=== PATIENT | male | born 1990 | race African-American/Black ===

== ENCOUNTER 2016-07-11 16:00 | Emergency (ER) | payer OTHER, MEDICAID ==
[2016-07-11] MEDS ORDERED: NORMAL SALINE 1000 ML 1,000 ML IV ONE ×2 (16:13→17:44)
--- NOTE | 2016-07-11 16:13 | ER Document Report ---
ED General - General Time seen by provider: 16:10 Mode of Arrival: Medic Information source: Patient, Law Enforcement TRAVEL OUTSIDE OF THE [place] IN LAST 30 DAYS: No - HPI Onset: Other - see HPI note <NADEEM PADRON - Last Filed: 07/11/16 20:28> <WILBURROMELIA CLEVE - Last Filed: 07/11/16 23:12> - General Stated Complaint: POSSIBLE OVERDOSE Notes: Patient is a 25-year-old male presenting to the emergency department for bizarre behavior and high blood glucose levels. Patient was brought in with [facility]. Patient was released from snf yesterday. Patient was walking around the mall and a protein people. Per [place] patient had pinpoint pupils and was not acting right. Patient has a blood glucose level of 456 and is acting confused. Patient reports that he was taking insulin while in snf. Patient is combative with hospital security. Patient reports that he has diabetes mellitus and hypertension. Patient reports that he is having hallucinations. Patient has no known allergies. (NADEEM PADRON) - Related Data Allergies/Adverse Reactions: No Known Allergies Allergy (Unverified 02/28/16 23:09) Past Medical History - General Information source: Patient, COUNTS INCLUDE [facility] BEDS AT THE [facility] Records - Social History Smoking Status: Unknown if Ever Smoked Family History: None - Past Medical History Cardiac Medical History: Reports: Hx Hypertension Endocrine Medical History: Reports: Hx Diabetes Mellitus Type 1 <NADEEM PADRON - Last Filed: 07/11/16 20:28> Review of Systems - Review of Systems Constitutional: No symptoms reported EENT: No symptoms reported Cardiovascular: No symptoms reported Respiratory: No symptoms reported Gastrointestinal: No symptoms reported Genitourinary: No symptoms reported Male Genitourinary: No symptoms reported Musculoskeletal: No symptoms reported Skin: No symptoms reported Hematologic/Lymphatic: No symptoms reported Neurological/Psychological: See HPI, Hallucinations -: Yes All other systems reviewed and negative <NADEEM PADRON - Last Filed: 07/11/16 20:28> Physical Exam - Vital signs Interpretation: Tachycardic - General General appearance: Appears well, Alert In distress: Mild - HEENT Head: Normocephalic, Atraumatic Eyes: Normal Pupils: PERRL Mucous membranes: Dry - Respiratory Respiratory status: No respiratory distress Chest status: Nontender Breath sounds: Normal Chest palpation: Normal - Cardiovascular Rhythm: Regular Heart sounds: Normal auscultation Murmur: No - Abdominal Inspection: Normal Distension: No distension Bowel sounds: Normal Tenderness: Nontender Organomegaly: No organomegaly - Back Back: Normal, Nontender - Extremities General upper extremity: Normal inspection, Normal ROM, Normal strength General lower extremity: Normal inspection, Normal ROM, Normal strength - Neurological Neuro grossly intact: Yes Cognition: Confused [place] Coma Scale Eye Opening: Spontaneous [place] Coma Scale Verbal: Oriented [place] Coma Scale Motor: Obeys Commands Dmitri Coma Scale Total: 15 Speech: Normal - Psychological Associated symptoms: Agitated, Confused, Uncooperative, Other - patient is responding to stimuli that others can not see - Skin Skin Temperature: Warm Skin Moisture: Dry <NADEEM PADRON - Last Filed: 07/11/16 20:28> Course - Laboratory Result Diagrams: 07/11/16 16:19 07/11/16 16:19 <NADEEM PADRON - Last Filed: 07/11/16 20:28> - Laboratory Result Diagrams: 07/11/16 16:19 07/11/16 16:19 - Diagnostic Test Radiology reviewed: Reports reviewed <ROMELIA BOWLES - Last Filed: 07/11/16 23:12> - Re-evaluation Re-evalutation: 07/11/16 Patient is a 25-year-old male the history of diabetes who comes in with active hallucinations. Patient was apparently combative at the mall and walking up to people. Patient responds to external and internal stimuli. Medically stable. Blood sugars been treated with fluids and also a small dose of insulin. Patient has been, cooperative in the emergency department. Patient will be held for psychiatric evaluation the morning. He has been placed on involuntary commitment paperwork. (ROMELIA BOWLES) - Vital Signs Vital signs: Temp Pulse Resp BP Pulse Ox 97.8 F 88 14 127/68 H 98 07/11/16 16:57 07/11/16 19:11 07/11/16 19:11 07/11/16 19:11 07/11/16 19:11 (ROMELIA BOWLES) - Laboratory Laboratory results interpreted by me: 07/11/16 07/11/16 07/11/16 16:19 16:19 16:19 Hgb 12.9 L Glucose 434 H* POC Glucose Lactic Acid 4.9 H ALT 19 L Alkaline Phosphatase 137 H Urine Glucose (UA) Salicylates < 1.0 L Acetaminophen < 10 L 07/11/16 07/11/16 07/11/16 16:23 17:32 19:08 Hgb Glucose POC Glucose 393 H 292 H Lactic Acid ALT Alkaline Phosphatase Urine Glucose (UA) >=500 H Salicylates Acetaminophen 07/11/16 20:43 Hgb Glucose POC Glucose 149 H Lactic Acid ALT Alkaline Phosphatase Urine Glucose (UA) Salicylates Acetaminophen (ROMELIA BOWLES) Discharge <NADEEM PADRON - Last Filed: 07/11/16 20:28> <ROMELIA BOWLES - Last Filed: 07/11/16 23:12> - Discharge Clinical Impression: Psychosis Qualifiers: Psychosis type: unspecified psychosis type Qualified Code(s): F29 - Unspecified psychosis not due to a substance or known physiological condition Condition: Stable Disposition: PSYCH HOSP/UNIT Scribe Attestation: 07/11/16 23:12 I personally performed the services described in the documentation, reviewed and edited the documentation which was dictated to the scribe in my presence, and it accurately records my words and actions. (ROMELIA BOWLES) Scribe Documentation - Scribe Written by [employer]:: Nadeem Padron 07/11/16 19:30 acting as scribe for :: Wilbur <NADEEM PADRON - Last Filed: 07/11/16 20:28>
[2016-07-11 16:37] LABS: ABSOLUTE BASOPHILS # (AUTO) 0.1 10^3/uL (0.0-0.2); ABSOLUTE LYMPHOCYTES (AUTO) 1.2 10^3/uL (0.5-4.7); ABSOLUTE NEUT (AUTO) 5.9 10^3/uL (1.7-8.2); BASOPHILS % (AUTO) 0.6 % (0-2); EOSINOPHILS % (AUTO) 0.5 % (0-6); HEMATOCRIT 38.1 % (37.9-51.0); HEMOGLOBIN 12.9 g/dL (13.5-17.0); HGB HCT DIFFERENCE 0.6; LYMPHOCYTES % (AUTO) 14.9 % (13-45); MEAN CORPUSCULAR HEMOGLOBIN 28.8 pg (27.0-33.4); MEAN CORPUSCULAR HGB CONC 33.9 g/dL (32.0-36.0); MEAN CORPUSCULAR VOLUME 85 fl (80-97); RED CELL DISTRIBUTION WIDTH 13.5 % (11.5-14.0); VENOUS BLOOD BASE EXCESS -1.6 mmol/L; VENOUS BLOOD HCO3 24.1 mmol/L (20-32); VENOUS BLOOD PCO2 44.4 mmHg (35-63); VENOUS BLOOD PH 7.35 (7.30-7.42); WHITE BLOOD COUNT 8.1 10^3/uL (4.0-10.5)
[2016-07-11 16:42] LABS: PROTHROMBIN TIME 13.9 SEC (11.4-15.4)
[2016-07-11 16:56] LABS: ALANINE AMINOTRANSFERASE 19 U/L (21-72); ALBUMIN 4.9 g/dL (3.5-5.0); ALKALINE PHOSPHATASE 137 U/L (38-126); ANION GAP 16 (5-19); ASPARTATE AMINO TRANSFERASE 28 U/L (17-59); BILIRUBIN,TOTAL 0.5 mg/dL (0.2-1.3); BLOOD UREA NITROGEN 14 mg/dL (7-20); CARBON DIOXIDE 24 mmol/L (22-30); CHLORIDE 102 mmol/L (98-107); CREATININE RESULT 1.08 mg/dL (0.52-1.25); POTASSIUM 4.2 mmol/L (3.6-5.0); SODIUM 142.4 mmol/L (137-145); TOTAL PROTEIN 7.7 g/dL (6.3-8.2)
[2016-07-11 16:57] LABS: ALCOHOL < 10 mg/dL (NONE DETECTED)
[2016-07-11 17:06] LABS: GLUCOSE 434 mg/dL (75-110)
[2016-07-11] MEDS ORDERED: INSULIN REG, HUMAN 100 UNIT/ML 3 ML VIAL (PYX) IV ONE (17:44)
[2016-07-11 19:23] LABS: APPEARANCE,URINE CLEAR; BILIRUBIN,URINE NEGATIVE (NEGATIVE); GLUCOSE, URINE >=500 mg/dL (NEGATIVE); KETONES,URINE NEGATIVE (NEGATIVE); LEUKOCYTE ESTERASE,URINE NEGATIVE (NEGATIVE); NITRITE,URINE NEGATIVE (NEGATIVE); PROTEIN,URINE NEGATIVE (NEGATIVE); URINE SPECIFIC GRAVITY 1.018; UROBILINOGEN,URINE NEGATIVE mg/dL (<2.0)
[2016-07-11 19:40] LABS: URINE BARBITURATES SCREEN NEGATIVE; URINE METHADONE SCREEN NEGATIVE; URINE OPIATES LOW NEGATIVE; URINE PHENCYCLIDINE SCREEN NEGATIVE
[2016-07-11] MEDS ORDERED: HALOPERIDOL 1 MG TABLET PO ONE (21:12)
[2016-07-12] MEDS ORDERED: INSULIN GLARGINE,HUM.REC.ANLOG 1,000 UNIT/10 ML UNIT SUBCUT ONE (02:28)
[2016-07-12] MEDS ORDERED: INSULIN REG, HUMAN 100 UNIT/ML 3 ML VIAL (PYX) SUBCUT ONE (02:29)
[2016-07-12] MEDS ORDERED: DEXTROSE 50%-WATER SYRINGE 25 GM/50 ML DOSE IV PRN (03:12)
[2016-07-12] MEDS ORDERED: INSULIN LISPRO 100 UNIT/ML 3 ML VIAL SUBCUT PRN (03:12)
[2016-07-12] MEDS ORDERED: GLUCAGON,HUMAN RECOMB 1 MG INJ IM PRN (03:12)
[2016-07-12] MEDS ORDERED: DEXTROSE 40% GEL 15 GM TUBE X 2 PO PRN (03:12)
[2016-07-12] MEDS ORDERED: DEXTROSE 40% GEL 15 GM TUBE PO PRN (03:12)
[2016-07-12] MEDS ORDERED: DEXTROSE 50%-WATER SYRINGE 12.5 GM/25 ML DOSE IV PRN (03:12)
--- NOTE | 2016-07-12 08:21 | EKG REPORT ---
SEVERITY:- NORMAL ECG - SINUS RHYTHM : Confirmed by: Ede Esposito MD 12-Jul-2016 08:20:53
--- NOTE | 2016-07-12 09:33 | ER Document Report ---
Doctor's Note Notes: 07/12/16 09:31 I have evaluated this pt. this am and he is in 4 point restraints. He states he doesn't want to eat breakfast because "it will taste like cockroaches." His physical exam is normal and he is awaiting disposition per mental health.
--- NOTE | 2016-07-12 09:50 | PSYCHOLOGICAL NOTE ---
Psych Note - Psych Note Psych Note: Patient presented to [facility] ED with a history of diabetes who comes in with active hallucinations. Patient was apparently combative at the mall and walking up to people. Patient responds to external and internal stimuli. Possible overdose. Patient states that he drank "coricidin" and when asked if he mixed it with anything he stated he put it with Mountain Dew. He continued disclosed that he used to do it often however not so often now. He discloses the first time he had a reaction like this. When asked about following up with previous plan of contacting [facility] he stated "I forgot to call." When asked what he didn' t that calling he stated he "got high and went shopping." Patient disclosed that he is currently homeless. Clinician notes patient was released from shelter 07/10/2016. Patient is demonstrating hearing voices and seeing things; by mumbling and looking out into the tello dramatic fashion. Patient is able to demonstrate orientation. Additionally asked why he was in restraints patient stated; "it is because I tried to leave" then asked if he could have a cigarette. Patient is alert and orientated to person place time and circumstance; patient is able to identify the month, president, location is currently [facility], in addition to arriving to the ED by EMS. Disclose circumstance resulting in needing services through the ED. clinician notes after completion of the evaluation patient was asked what channel he wanted to be, patient appeared to be attempting to determine the correct answer then stated "go ahead and turn it off I have been watching much TV anyway." Mood is euthymic and affect. Patient denies suicidal homicidal ideation. Patient endorses auditory and visual hallucinations; no delusions are noted. Thought process is logical organized and linear. Conversational speech was low and at times muffled. Eye contact was fair. Intellectual abilities appear to be within normal range. Attention and concentration are fair. Insight, judgment, impulse control are poor. 292.9 (F19.99) Unspecified Other substance related disorder V60.0 (Z59.0) Homelessness V62.5 (Z65.2) Problems related to release from nursing home. Impression\\plan: Patient is recommended for rescind of IVC and follow up with outpatient mental health. Patient is psychiatrically cleared for discharge and was provided with local recourses to include a list of outpatient providers, homeless [facility] list, information about diabetes and [facility] for [facility]. Patient's presentation visual and auditory hallucinations are not congruent with what is commonly associated with psychosis. For example patient is reporting auditory hallucinations however is able to remain on topic, identify that they are hallucinations, make eye contact , communicate orientation and identified that he has watched "too much TV." Patient is currently homeless after being release from shelter the day before he was admitted into [facility] ED. Dr. Kaufman was consulted on the care and management of this patient; attending physician is in agreement with recommendations and dispositions.
[2016-07-12 13:29] VITALS: BP 124/61
[2016-07-12] MEDS ORDERED: INSULIN GLARGINE,HUM.REC.ANLOG 1,000 UNIT/10 ML UNIT SUBCUT SCH ×2 (18:00)
== END 2016-07-12 13:31 | disposition home or self-care (01) ==
LOC: ER 16:00
DX: F29 Unspecified psychosis not due to a substance or known physiological condition (principal); E10.9 Type 1 diabetes mellitus without complications; I10 Essential (primary) hypertension; F19.99 Other psychoactive substance use, unspecified with unspecified psychoactive substance-induced disorder; R44.3 Hallucinations, unspecified; Z79.4 Long term (current) use of insulin; Z65.2 Problems related to release from prison; Z59.0 Homelessness; Z78.1 Physical restraint status
CPT/HCPCS: 93005; 99285; 96360; 96361; 51701; 36415; 87040; 87086; 82962; 80307 ×4; 85025; 85610; 80053; 81001; 82803; 83605; 71010; 70450; 93010; J1815 ×4; J3490; J7030

== ENCOUNTER 2016-07-30 22:28 | Emergency (ER) | payer MEDICAID, OTHER ==
--- NOTE | 2016-07-30 23:30 | ER Document Report ---
ED General - General Stated Complaint: INTOXICATION Mode of Arrival: Medic Information source: Patient, Emergency Med Personnel, [facility] Records Cannot obtain history due to: Altered mental status Notes: This is a 25-year-old -[place] male who through chart review appears to have a history of diabetes and substance abuse. He has been seen in this emergency department several times for altered mental status and hallucinations usually revolving around substance abuse. Tonight he arrives via EMS after he states that he "got drunk and got hi". Reportedly, shortly after arrival, he bolted out of the ER and ran wildly outside, took off his clothes, and stood screaming while naked outside. He was brought back inside. At the time of my exam he denies any complaints. However he is not very cooperative with interview and states he does not know where he is. After a few questions the patient decided to close his eyes and would no longer be cooperative with my interview. TRAVEL OUTSIDE OF THE [place] IN LAST 30 DAYS: No - Related Data Allergies/Adverse Reactions: No Known Allergies Allergy (Verified 07/31/16 05:18) Past Medical History - General Information source: [facility] Records - Social History Smoking Status: Unknown if Ever Smoked Family History: None - Past Medical History Cardiac Medical History: Reports: Hx Hypertension Endocrine Medical History: Reports: Hx Diabetes Mellitus Type 1 Review of Systems - Review of Systems -: Yes ROS unobtainable due to patient's medical condition - pt uncooperative with interview Physical Exam - Vital signs Vitals: Temp Pulse Resp BP Pulse Ox 98.2 F 122 H 20 148/81 H 100 07/31/16 00:42 07/31/16 00:42 07/31/16 00:42 07/31/16 00:42 07/31/16 00:42 - Notes Notes: PHYSICAL EXAMINATION: GENERAL: well developed, well nourished adult male. Flat affect. Not cooperative with interview HEAD: Atraumatic, normocephalic. EYES: Pupils equal round and reactive to light, conjunctiva are normal. ENT: Moist mucous membranes. NECK: Normal range of motion, supple without lymphadenopathy LUNGS: Breath sounds clear to auscultation bilaterally and equal. No wheezes rales or rhonchi. HEART: Regular rate and rhythm without murmurs ABDOMEN: Soft, nontender, normoactive bowel sounds. No guarding, no rebound. No masses appreciated. EXTREMITIES: Normal range of motion NEUROLOGICAL: Alert to person, not to time or place. Cranial nerves grossly intact. Normal speech. No gross focal motor deficits noted PSYCH: Flat affect, uncooperative with exam SKIN: Warm, Dry, normal turgor, no rashes or lesions noted. Course - Re-evaluation Re-evalutation: 07/31/16 0400: Patient reevaluated. He remains uncooperative with interview. He does endorse audio hallucinations and states that he is actively hearing voices now. His labs are reviewed and his hyperglycemia has improved. At this point he is medically stable and needs to be evaluated by psychiatry. At this point I will fill out IVC paperwork. - Vital Signs Vital signs: Temp Pulse Resp BP Pulse Ox 98.2 F 89 16 118/65 99 07/31/16 00:42 07/31/16 06:24 07/31/16 06:24 07/31/16 06:24 07/31/16 06:24 - Laboratory Result Diagrams: 07/31/16 00:08 07/31/16 00:08 Laboratory results interpreted by me: 07/31/16 07/31/16 07/31/16 00:08 00:08 01:27 WBC 16.6 H Seg Neutrophils % 83.3 H Lymphocytes % 7.6 L Absolute Neutrophils 13.8 H Chloride 96 L Glucose 450 H* POC Glucose Calcium 10.5 H ALT 20 L Alkaline Phosphatase 132 H Urine Glucose (UA) >=500 H Urine Ketones TRACE H Salicylates < 1.0 L Acetaminophen < 10 L 07/31/16 02:42 WBC Seg Neutrophils % Lymphocytes % Absolute Neutrophils Chloride Glucose POC Glucose 289 H Calcium ALT Alkaline Phosphatase Urine Glucose (UA) Urine Ketones Salicylates Acetaminophen Discharge - Discharge Clinical Impression: Marijuana abuse, Type 1 diabetes mellitus with hyperglycemia Alcohol intoxication Qualifiers: Complication of substance-induced condition: with unspecified complication Qualified Code(s): F10.129 - Alcohol abuse with intoxication, unspecified Psychosis Qualifiers: Psychosis type: other Qualified Code(s): F28 - Other psychotic disorder not due to a substance or known physiological condition Condition: Stable Disposition: PSYCH HOSP/UNIT
[2016-07-31 00:29] LABS: ABSOLUTE BASOPHILS # (AUTO) 0.1 10^3/uL (0.0-0.2); ABSOLUTE EOSINOPHILS # (AUTO) 0.1 10^3/uL (0.0-0.6); ABSOLUTE LYMPHOCYTES (AUTO) 1.3 10^3/uL (0.5-4.7); ABSOLUTE MONOCYTES (AUTO) 1.3 10^3/uL (0.1-1.4); ABSOLUTE NEUT (AUTO) 13.8 10^3/uL (1.7-8.2); BASOPHILS % (AUTO) 0.6 % (0-2); EOSINOPHILS % (AUTO) 0.6 % (0-6); HEMATOCRIT 40.8 % (37.9-51.0); HEMOGLOBIN 13.6 g/dL (13.5-17.0); LYMPHOCYTES % (AUTO) 7.6 % (13-45); MEAN CORPUSCULAR HEMOGLOBIN 28.6 pg (27.0-33.4); MEAN CORPUSCULAR HGB CONC 33.4 g/dL (32.0-36.0); MEAN CORPUSCULAR VOLUME 86 fl (80-97); MONOCYTES % (AUTO) 7.9 % (3-13); RED BLOOD COUNT 4.77 10^6/uL (4.35-5.55); RED CELL DISTRIBUTION WIDTH 13.6 % (11.5-14.0); SEGMENTED NEUTROPHILS % (AUTO) 83.3 % (42-78); WHITE BLOOD COUNT 16.6 10^3/uL (4.0-10.5)
[2016-07-31 00:43] LABS: ALANINE AMINOTRANSFERASE 20 U/L (21-72); ALBUMIN 4.8 g/dL (3.5-5.0); ALCOHOL 123 mg/dL (NONE DETECTED); ALKALINE PHOSPHATASE 132 U/L (38-126); ANION GAP 18 (5-19); ASPARTATE AMINO TRANSFERASE 21 U/L (17-59); BILIRUBIN,TOTAL 0.6 mg/dL (0.2-1.3); BLOOD UREA NITROGEN 9 mg/dL (7-20); CALCIUM 10.5 mg/dL (8.4-10.2); CARBON DIOXIDE 29 mmol/L (22-30); CHLORIDE 96 mmol/L (98-107); CREATININE RESULT 0.88 mg/dL (0.52-1.25); POTASSIUM 4.7 mmol/L (3.6-5.0); SODIUM 143.3 mmol/L (137-145); TOTAL PROTEIN 7.9 g/dL (6.3-8.2)
[2016-07-31 00:52] LABS: GLUCOSE 450 mg/dL (75-110)
[2016-07-31] MEDS ORDERED: INSULIN REG, HUMAN 100 UNIT/ML 3 ML VIAL (PYX) IV ONE (01:10)
[2016-07-31] MEDS ORDERED: NORMAL SALINE 1000 ML 1,000 ML IV ONE (01:10)
[2016-07-31 04:26] LABS: APPEARANCE,URINE CLEAR; BILIRUBIN,URINE NEGATIVE (NEGATIVE); GLUCOSE, URINE >=500 mg/dL (NEGATIVE); KETONES,URINE TRACE mg/dL (NEGATIVE); LEUKOCYTE ESTERASE,URINE NEGATIVE (NEGATIVE); NITRITE,URINE NEGATIVE (NEGATIVE); PROTEIN,URINE NEGATIVE (NEGATIVE); URINE SPECIFIC GRAVITY 1.032; UROBILINOGEN,URINE NEGATIVE mg/dL (<2.0)
[2016-07-31 04:41] LABS: URINE BARBITURATES SCREEN NEGATIVE; URINE METHADONE SCREEN NEGATIVE; URINE OPIATES LOW NEGATIVE; URINE PHENCYCLIDINE SCREEN NEGATIVE
--- NOTE | 2016-07-31 08:28 | EKG REPORT ---
SEVERITY:- BORDERLINE ECG - SINUS RHYTHM BORDERLINE Q WAVES IN INFERIOR LEADS INFERIOR Q WAVES, PROBABLY NORMAL VARIATION : Confirmed by: Ede Espsoito MD 31-Jul-2016 08:26:05
--- NOTE | 2016-07-31 08:38 | PSYCHOLOGICAL NOTE ---
Psych Note - Psych Note Psych Note: Patient presented to [facility] ED with a history of diabetes and substance abuse. He has been seen in this emergency department several times for altered mental status and hallucinations usually revolving around substance abuse. Tonight he arrives via EMS after he states that he "got drunk and got hi" Patient disclosed that he smoked marijuana and was drinking alcohol. He denies drinking cough syrup mixed with soda; this is been his substance of choice in the past. Patient denies having any suicidal or homicidal thoughts. He continued to disclose that he did go to the health department to get prescription for his diabetes however he was unable to afford it. Patient continued to disclose that [facility] however they would not allow him in because of upcoming court date. Patient was released from assisted on 07/10/2016 and is currently on parole. Patient is alert and orientated to person place time and circumstance. Mood is euthymic with congruent affect. Patient denies suicidal homicidal ideation. Patient denies auditory and visual hallucinations may: No delusions are noted. Thought process is logical, organized and linear. Conversational speech was within normal rate tone and prosody. Eye contact was fair. Intellectual abilities appear to be within average range. Attention and concentration are fair. Insight, judgment, impulse control are poor. 292.9 (F19.99) Unspecified Other substance related disorder V60.0 (Z59.0) Homelessness V62.5 (Z65.2) Problems related to release from half-way. Impression\\plan: Patient is recommended for rescind of IVC is considered psychiatrically cleared for discharge. Patient was provided with local recourses to include a list of outpatient providers, homeless [facility] list, information about diabetes and information for the [facility], food samaniego, and day work. Patient has a history of substance abuse and noncompliance with treatment recommendations for his diabetes. Patient does site economic difficulties for his noncompliance however is able to economically obtain alcohol and marijuana. Patient is psychiatrically cleared for discharge. Patient will follow up with [facility]. Dr. Kaufman was consulted on the management and care of this patient; attending physician is in agreement with recommendations and disposition.
--- NOTE | 2016-07-31 11:40 | ER Document Report ---
Doctor's Note Notes: 07/31/16 11:38 Rounds: Chart reviewed and patient interviewed. Patient apparently is homeless and is here because of unusual behavior area he has been using multiple substances including alcohol and marijuana. Is an insulin-dependent diabetic, but says he does not use his insulin at this time. Labs show a white count of 16,600, but patient has no evidence of any infectious process anywhere. Blood sugars in the 200s. Alcohol of 123. Positive marijuana on his drug screen. Patient appears to be medically stable for transfer or discharge. Mental health has assessed the patient feels he can be discharged to follow-up at [facility]. Queenie Atkinson M.D. 07/31/16 11:43
[2016-07-31 12:03] VITALS: BP 125/65
== END 2016-07-31 12:03 | disposition home or self-care (01) ==
LOC: ER 22:28
DX: F10.129 Alcohol abuse with intoxication, unspecified (principal); F12.10 Cannabis abuse, uncomplicated; E10.65 Type 1 diabetes mellitus with hyperglycemia; F29 Unspecified psychosis not due to a substance or known physiological condition; I10 Essential (primary) hypertension
CPT/HCPCS: 93005; 99285; 96360; 36415; 82962; 80307 ×4; 85025; 80053; 81001; 71010; 93010; J1815; J7030